=== PATIENT | female | born 1930 | race Caucasian/White ===

== ENCOUNTER 2017-07-27 19:46 | Observation (INO) ==
[2017-07-27] MEDS ORDERED: LABETALOL 20 MG/4 ML SYRINGE IV STA (20:53)
--- NOTE | 2017-07-27 20:56 | Emergency Department Note ---
Arrival - Arrival Chief Complaint: Abdominal / Flank Pain Stated Complaint: Heart ED Nursing Triage Note: C/O Upper abd pain. Onset 1900. Pt states she was concerned that it could be her heart, but took gas x and coreg just to be sure. Pt reports that she does feel some better. Pt reports that her blood pressure was also high at home as well. Mode of Arrival: Wheelchair Time Seen by Provider: 07/27/17 20:15 - History of Present Illness HPI Narrative: This is a 87-year-old white female with a history of atrial fibrillation on Coreg and Eliquis presents with severe sudden onset of epigastric abdominal pain was started approximately 7 PM and which lasted for 30 minutes not associated with diaphoresis shortness of breath nor nausea and vomiting. The patient was concerned that this discomfort was due to a heart problem because her blood pressure was 212/90 she came to the emergency department for further evaluation to be sure she was not having a heart attack. She has no history of coronary artery disease. She has a history of high blood pressure and hyperlipidemia Date of Last Menstrual Period: Hysterectomy Allergies/Adverse Reactions: Allergies Allergy/AdvReac Type Severity Reaction Status Date / Time morphine Allergy Intermediate Difficulty Verified 07/27/17 19:55 Breathing Home Medications: Home Medications Medication Instructions Recorded Confirmed Type Apixaban [Eliquis] 2.5 mg PO BID 07/27/17 07/27/17 History Atorvastatin [Lipitor] 10 mg PO DAILY 07/27/17 07/27/17 History Carvedilol [Coreg] 3.125 mg PO BID 07/27/17 07/27/17 History dilTIAZem HCl [Diltiazem HCl] 60 mg PO DAILY 07/27/17 07/27/17 History Review of System - Review of System Constitutional: Absent: fever, night sweats Eyes: Absent: redness, vision change Head/Ears/Nose/Throat: Absent: epistaxis, nasal drainage Respiratory: Absent: respiratory distress, wheezing Cardiovascular: Absent: dyspnea on exertion, orthopnea Gastrointestinal: Absent: nausea, vomiting Genitourinary female: Absent: dysuria, frequency Musculoskeletal: Absent: joint swelling, lower back pain Skin: Absent: change in color, change in hair/nails Neurological: Absent: numbness, paresthesias Psychiatric: Absent: anxiety, depression Endocrine: Absent: polydipsia, polyuria Hematological/Lymphatic: Absent: easy bruising, lymphadenopathy Allergic/Immunologic: Absent: urticaria, itchy eyes Medical,Surgical,& Family Hx - Medical History Cardio: History of: Hypertension - Social History Smoking Status: Never smoker Frequency of Alcohol Use: None Type of Drug Use: None Exam Vital Signs: Vital Signs Temperature 98.0 F 07/27/17 19:56 Pulse Rate 77 07/27/17 19:56 Respiratory Rate 16 07/27/17 19:56 Blood Pressure 219/81 07/27/17 19:56 O2 Sat by Pulse Oximetry 98 07/27/17 19:56 - General General appearance: alert - Eye Eye exam: Present: PERRL, EOMI - ENT ENT exam: Present: normal exam - Neck Neck exam: Present: normal inspection, full ROM - Chest Chest inspection: Present: normal inspection - Respiratory Respiratory exam: Present: normal lung sounds bilaterally - Cardiovascular Cardiovascular exam: Present: regular rate, normal rhythm. Absent: irregular rhythm - Abdominal Exam Abdominal exam: Present: soft, normal bowel sounds - Extremities Exam Extremities exam: Present: normal inspection, full ROM - Back Exam Back exam: Present: normal inspection, full ROM - Neurological Exam Neurological exam: Present: alert, oriented X3, CN II-XII intact - Psychiatric Psychiatric exam: Present: normal affect, normal mood - Skin Skin exam: Present: warm, dry Course Course Narrative: Patient's troponin is slightly elevated and because of her 30 minutes of epigastric abdominal pain it seems prudent that she should be admitted to the hospital for serial cardiac enzymes and possible stress test. The case was discussed with the hospitalist who agreed to admit the patient to the hospital. Results - Labs CBC & BMP: 07/27/17 21:05 07/27/17 21:05 Disposition Clinical Impression: Chest pain Disposition: Still a Patient
[2017-07-27] MEDS ORDERED: LABETALOL 20 MG/4 ML SYRINGE IV ONE (21:09)
[2017-07-27 21:18] LABS: Basophils # 0.1 10*3/uL (0.0-0.2); Basophils % 0.8 % (0.0-0.8); Eosinophils # 0.2 10*3/uL (0.0-0.87); Eosinophils % 2.3 % (0.00-10.9); Hemoglobin 13.2 GM/DL (12.0-16.0); Immature Granulocytes % 0.5 %; Immature Granulocytes Absolute 0.03 #; Lymphocytes # 1.2 10*3/uL (1.4-4.0); Lymphocytes % 18.5 % (21.3-54.2); Mean Corpuscular Hemoglobin 31 PG (27-34); Mean Platelet Volume 11.4 FL (9.6-12.0); Monocytes # 0.4 10*3/uL (0.11-0.8); Monocytes % 5.6 % (1.7-12.7); Neutrophils # 4.8 10*3/uL (1.4-7.4); Neutrophils % 72.3 % (38.7-73.9); Platelet Count 153 T/CUMM (130-400); Red Cell Distribution Width 13.5 % (9.3-17.3); White Blood Count 6.6 T/CUMM (4-12)
[2017-07-27 22:12] LABS: Albumin 3.6 G/DL (3.4-5.0); Bilirubin,Total 0.5 MG/DL (0.2-1.0); Calcium 8.8 MG/DL (8.5-10.1); Potassium 3.7 MMOL/L (3.5-5.1); Total Protein 7.1 G/DL (6.4-8.3); Troponin I Only 0.047 NG/ML (0.00-0.045)
[2017-07-27] MEDS ORDERED: ONDANSETRON 4 MG/2 ML VIAL IV PRN (23:18)
--- NOTE | 2017-07-27 23:46 | Hospitalist History & Physical ---
Assessment and Plan - Time spent with patient Time spent with patient: Greater than 30 minutes (1) Chest pain Status: Acute Assessment and plan: Admit to hospitalist services. Consult cardiology. Telemetry; Hx of A-fib. Initial troponin in ED was 0.047; Follow serial troponins and EKGs. Cardiac Diet. Continue home medications; atorvastatin, Coreg, Cardizem, and Eliquis. Hydralazine 10 mg IV Q 2 hours PRN. O2 per unit protocol. BNP, BMP, TSH/Free T4, Lipid panel, and magnesium in a.m. Patient has reported dizziness and daily headaches for several months. Obtain carotid US. Current Visit: Yes (2) Hypertension Status: Chronic Assessment and plan: As above. Current Visit: Yes (3) Atrial fibrillation Status: Chronic Assessment and plan: As above. Current Visit: No (4) Hyperlipidemia Status: Chronic Assessment and plan: As above. Current Visit: No (5) DVT prophylaxis Status: Acute Assessment and plan: Continue home dose of Eliquis. Current Visit: Yes History of Present Illness Chief complaint: Chest pain History of present illness: Ms. Torrez is a 87 year old female with a past medical history of atrial fibrillation, hypertension, and hyperlipidemia who presented to the ED tonight with complaints of chest pain that started around 19:00 today. She reports that pain started in the epigastric region after eating at [employer] and radiated to the right and left upper quadrants. She initially thought it was gas pains from food intake and went home and took some gas medicine. She also checked her blood pressure at that time and found it severely elevated at 212/90 with a heart rate of 76, so she took her nightly dose of Coreg at that time. Pain was present at rest, was described as feeling of pressure and was rated as 4/10. Pain lasted about 30-40 minutes and had resolved by the time she reached the ED. She denies any associated shortness of breath, nausea, vomiting, diaphoresis , or palpitations. She does report dizziness but says she has had dizzy episodes since August of last year. Additionally, she reports that she has had daily headaches and felt fatigued, irritable, and unlike herself for the last 3-4 months. Labs in the ED were significant for Troponin 0.047 and Creatinine 1.10. EKG showed sinus rhythm with occasional PVCs and no ST elevation. Currently, she is lying in bed, in no acute distress and pain free. Hospitalist services were consulted, and the patient will be admitted to for further evaluation and treatment. Home medications were reviewed and reconciled. This patient is a full code. Home Medications Medication Instructions Recorded Confirmed Type Apixaban [Eliquis] 2.5 mg PO BID 07/27/17 07/28/17 History Atorvastatin [Lipitor] 10 mg PO DAILY 07/27/17 07/28/17 History Carvedilol [Coreg] 3.125 mg PO DAILY 07/27/17 07/28/17 History dilTIAZem HCl [Diltiazem HCl] 30 mg PO DAILY 07/27/17 07/28/17 History Allergies Allergy/AdvReac Type Severity Reaction Status Date / Time morphine Allergy Intermediate Difficulty Verified 07/27/17 19:55 Breathing Medical,Surgical,& Family Hx - Medical History Cardio: History of: Cardiac Dysrhythmia (Atrial fibrillation ), Hypertension HEENT: History of: Eye Problem (Macular hole s/p surgical repair) - Surgical History HEENT Surgeries: Surgical HX of: Eye Surgery (cataract; macular hole repair ) Abdominal Surgeries: Surgical HX of: Appendectomy Reproductive Surgeries: Surgical HX of;: Section, Hysterectomy - Family History Family History: Reports;: Family Heart Disease, Family Hypertension - Social History Smoking Status: Never smoker Have you smoked in the last 12 months: No Frequency of Alcohol Use: None Type of Drug Use: None Marital Status: Lives With:: Spouse Functional capacity: independent ambulation 12 point system: reviewed and no additional remarkable complaints except as stated - Constitutional Constitutional: Present: fatigue, headache(s). Absent: chills, fever(s), lethargy, malaise, weakness - EENT Eyes: Absent: blurry vision, diplopia, loss of vision Ears: Absent: decreased hearing, ear discharge, ear pain Nose, mouth and throat: Present: headache(s). Absent: epistaxis, nasal congestion, sore throat - Cardiovascular Cardiovascular: Present: chest pain at rest. Absent: diaphoresis, dyspnea, edema, radiating jaw, neck or arm pain, orthopnea, palpitations - Respiratory Respiratory: Absent: cough, dyspnea, wheezing - Gastrointestinal Gastrointestinal: Absent: abdominal pain, constipation, diarrhea, nausea, vomiting - Genitourinary Genitourinary: Absent: dysuria, flank pain, urinary frequency - Musculoskeletal Musculoskeletal: Absent: arthralgias, joint swelling, muscle weakness, myalgias - Neurological Neurological: Present: disequilibrium, dizziness, headache(s). Absent: confusion, numbness, paresthesias, syncope - Psychiatric Psychiatric: Present: anxiety. Absent: depression - Endocrine Endocrine: Absent: cold intolerance, polydipsia, polyphagia, polyuria - Hematologic/Lymphatic Hematologic/Lymphatic: Absent: easy bleeding, easy bruising Exam - Constitutional Vitals: Period Temp Pulse Resp BP Sys/[place] Pulse Ox Last 24 Hr 98.0 F-98.0 F 77-77 16-16 219-219/81-81 98 Exam: Constitutional System: Afebrile. Awake, alert and oriented x 3. No distress. No tremulousness. Head: Normocephalic, atraumatic. Ears, Nose and Throat System: No pain or tenderness. No epistaxis or discharge Eyes System: Pupils equal, round, and reactive. Extraocular muscles intact. Neck: Supple, without adenopathy, No jugular venous distention. No thyromegaly, neck mass, or prior surgery apparent. Respiratory System: Chest clear to auscultation. Cardiovascular System: Heart with regular rate and rhythm. No murmur. GI System: Abdomen soft, nontender. Normo active bowel sounds present. Musculoskeletal System: Limbs with no pedal edema. Full distal pulses. Normal capillary refill. Neurological System: No discernable sensory deficit. No aphasia Psychiatric System: Conversation is rational Results - Labs CBC & BMP: 07/27/17 21:05 07/27/17 21:05 Lab Results: I have reviewed the past 24 hour labs Labs: WBC 6.6 RBC 4.3 Hgb 13.2 HCT 40.0 Platelet 153 Sodium 143 Potassium 3.7 Chloride 106 BUN 20 Creatinine 1.1 AST 49 ALT 27 Alkaline phosphatase 124 Troponin 0 0.047
[2017-07-28] MEDS ORDERED: hydrALAZINE 20 MG/1 ML VIAL IV PRN (01:23)
[2017-07-28] MEDS ORDERED: ALUMINUM/MAGNES/SIMETH MAX STR 30 ML UDCUP PO PRN (01:25)
[2017-07-28] MEDS: ATORVASTATIN 10 MG TABLET PO SCH ×2 (01:42→13:40)
[2017-07-28] MEDS: DILTIAZEM 60 MG TABLET PO SCH ×2 (01:42→13:43)
[2017-07-28] MEDS: APIXABAN 2.5 MG TABLET PO SCH ×3 (01:42→20:05)
--- NOTE | 2017-07-28 02:46 | Order Completion Report ---
See report scanned to EMR
[2017-07-28 06:41] LABS: Calcium 8.5 MG/DL (8.5-10.1); Magnesium 2.1 MG/DL (1.8-2.4); Osmolality,Calculated 288.8 MOS/KG (273-304); Potassium 3.7 MMOL/L (3.5-5.1); Risk Ratio 3.3; Thyroid Stimulating Hormone 2.38 uIU/ml (0.358-3.74); VLDL CHOLESTEROL 24.8 MG/DL
--- NOTE | 2017-07-28 07:01 | Order Completion Report ---
See report scanned to EMR
[2017-07-28] MEDS ORDERED: CARVEDILOL 3.125 MG TABLET PO SCH ×2 (08:00→21:00)
--- NOTE | 2017-07-28 08:48 | Ultrasound Report ---
Exam:US carotid duplex BI Date:07/28/2017 4:22 AM Indication: Dizziness, headaches Color Doppler, wave form analysis, and grayscale analysis of the cervical carotid arteries was performed. There is a moderate amount of eccentric partially calcified plaque in the left carotid bulb. Waveform analysis shows proper directional flow of the cervical carotid arteries. There is antegrade flow in either vertebral artery. There is no abnormal increased peak systolic velocity in the common or internal carotid arteries where seen. Impression: There is 0-49% diameter reduction narrowing of either internal carotid artery using indirect NASCET criteria Right Side Flow velocities centimeters per second Common carotid artery: 96 Proximal ICA: 74 Distal ICA: 90 External carotid artery: 128 Vertebral artery: 64 ICA/CCA ratio: 0.9 Measurements in millimeters Distal ICA: 5.2 Left SIde Flow velocities centimeters per second Common carotid artery 101 Proximal ICA: 51 Distal ICA: 120 External carotid artery: 110 Vertebral artery: 68 ICA/CCA ratio: 1.2 Measurements in millimeters Distal ICA: 5.1 Today studies were performed utilizing indirect NASCET criteria PROCEDURE INTERPRETED AT [facility] [place] DEPARTMENT OF RADIOLOGY Final Report Signed by: Dr. Kitty Christopher
[2017-07-28] MEDS ORDERED: APIXABAN 2.5 MG TABLET PO SCH (09:00)
[2017-07-28] MEDS ORDERED: ATORVASTATIN 10 MG TABLET PO SCH (09:00)
[2017-07-28] MEDS ORDERED: DILTIAZEM 60 MG TABLET PO SCH (09:00)
--- NOTE | 2017-07-28 09:55 | Cardiology Consult Note ---
Assessment and Plan - Time spent with patient Time spent with patient: Greater than 30 minutes (1) Fatigue Status: Acute Assessment and plan: SEE PLAN OF CARE LISTED BELOW Current Visit: Yes (2) Chest pain Status: Acute Assessment and plan: SEE PLAN OF CARE LISTED BELOW Current Visit: Yes (3) Hypertension Status: Chronic Assessment and plan: SEE PLAN OF CARE LISTED BELOW Current Visit: Yes (4) Atrial fibrillation Status: Chronic Assessment and plan: SEE PLAN OF CARE LISTED BELOW Current Visit: No (5) Hyperlipidemia Status: Chronic Assessment and plan: SEE PLAN OF CARE LISTED BELOW Current Visit: No History of Present Illness - Data of Consult Patient: known to practice within the last 3 years Consult date: 07/28/17 Requesting Physician: Surya Cabral - Consult Narrative Reason for consult: chest pain, fatigue History of present illness: 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 Torrez, 87WF, with risk factors significant for: Age, hypertension, dyslipidemia. History of paroxysmal atrial fibrillation (takes Eliquis for stroke prevention), mitral valve disorder. Patient presented to the emergency department last evening after experiencing chest pain intermittently after eating at [employer]. The discomfort started late in the evening and initially started in the epigastric region but then radiated to the right and left chest area. It took her breath away. Described as tightness. When she checked her blood pressure at home it was noted to be 212/ 90, heart rate 76. Patient took an additional Coreg and Tums. Because she was having hypertension and chest discomfort she felt as if she should be evaluated in the ER. The discomfort lasted approximately 45 minutes and as she arrived in the emergency department, discomfort subsided. Around 0100 this morning, patient began to feel full sensation in the epigastric area and some nausea. This lasted approximately 2 hours. She was given something for nausea and the discomfort went away. Rates the pain as 7 on a scale of 1-10, currently chest pain-free. Patient is normally active performing her activities of daily living at home without chest pain, heaviness or tightness. She has been fatigued over the past several months. She reports she does sleep well and gets at least 8 hours of sleep each night. She has been extremely dizzy and does not take in a lot of fluids throughout the day. Carotid ultrasound negative. Troponin 0.047, 0.144 and 0.151. EKG does not reveal an ischemic event. I will keep patient n.p.o. and discuss with Dr. Bangura. Await additional recommendations. IMPRESSION/PLAN: 1. CHEST PAIN - continue follow cardiac biomarkers. Echocardiogram. Continue with beta-oksana, statin. Add PPI 2. HYPERTENSION - will adjust medications accordingly during hospital stay 3. DYSLIPIDEMIA - continue statin. LDL 70 4. PAROXYSMAL ATRIAL FIBRILLATION - currently normal sinus rhythm without paroxysms of atrial fibrillations during this hospital stay. Continue Eliquis for stroke prevention 5. MITRAL VALVE DISORDER - echocardiogram 6. FATIGUE - will order UA CC: Cyndi Hughes MD - Home Medications and Allergies Home Medications: Home Medications Medication Instructions Recorded Confirmed Type Apixaban [Eliquis] 2.5 mg PO BID 07/27/17 07/28/17 History Atorvastatin [Lipitor] 10 mg PO DAILY 07/27/17 07/28/17 History Carvedilol [Coreg] 3.125 mg PO DAILY 07/27/17 07/28/17 History dilTIAZem HCl [Diltiazem HCl] 30 mg PO DAILY 07/27/17 07/28/17 History Allergies/Adverse Reactions: Allergies Allergy/AdvReac Type Severity Reaction Status Date / Time morphine Allergy Intermediate Difficulty Verified 07/27/17 19:55 Breathing Review of systems: REVIEW OF SYSTEMS: - Constitutional Constitutional: Present: Fatigue. Absent: syncope, anorexia, night sweats - EENT Eyes: Absent: blurry vision, loss of vision, diplopia Ears: Absent: decreased hearing, ear pain, ear discharge - Cardiovascular Cardiovascular: Present: chest pain at rest. Denies dyspnea on exertion. Denies edema, palpitations. Absent: chest pain with deep breath, claudication, - Respiratory Respiratory: Denies OLMEDO, cough. Absent: wheezing, hemoptysis, change in phlegm color - Gastrointestinal Gastrointestinal: Present: constipation, anal spasms frequent. Absent: abdominal pain, hematemesis, hematochezia, melena, change in bowel habits, nausea - Genitourinary Genitourinary: Absent: difficulty urinating, dysuria, urinary hesitancy, flank pain - Musculoskeletal Musculoskeletal: Present: back pain Absent: joint swelling, muscle cramps, muscle weakness - Neurological Neurological: Present: normal gait without frequent falls. Dizziness. Absent: hemiparesis - Psychiatric Psychiatric: Absent: anxiety, depression, difficulty concentrating - Endocrine Endocrine: Present: fatigue. Absent: cold intolerance, heat intolerance, polyuria, polyphagia, polydipsia - Hematologic/Lymphatic Hematologic/Lymphatic: Present: easy bruising. Absent: easy bleeding -Integumentary Integumentary: Absent: lesions, rashes, skin breakdown Medical,Surgical,& Family Hx - Medical History Cardio: History of: Cardiac Dysrhythmia (Atrial fibrillation ), Hypertension No history of: [place] HEENT: History of: Eye Problem (Macular hole s/p surgical repair) - Surgical History HEENT Surgeries: Surgical HX of: Eye Surgery (cataract; macular hole repair ) Abdominal Surgeries: Surgical HX of: Appendectomy Reproductive Surgeries: Surgical HX of;: Section, Hysterectomy - Family History Family History: Reports;: Family Heart Disease, Family Hypertension - Social History Smoking Status: Never smoker Have you smoked in the last 12 months: No Frequency of Alcohol Use: None Type of Drug Use: None Marital Status: Lives With:: Alone Functional capacity: independent ambulation Physical Examination Vital Signs Temp Pulse Resp BP Pulse Ox 98.0 F 77 16 219/81 98 07/27/17 19:56 07/27/17 19:56 07/27/17 19:56 07/27/17 19:56 07/27/17 19:56 Exam: General: [Appears well with no apparent distress.] [Pleasant and cooperative. ] [Appears comfortable.] HEENT: [PERRL, normocephalic, atraumatic. Mucous membranes moist. No jaundice noted. Conjunctiva moist and clear, sclerae anicteric] Neck: No JVD/HJR, no thyromegaly or lymphadenopathy noted. Bilateral carotid bruits Cardiac: [Regular rate and rhythm.] [No obvious murmur rub or gallop.] Lungs: [Clear to auscultation without accessory muscle use to assist the respiratory pattern.] Not requiring oxygen Abdomen: Soft, bowel sounds normoactive. Nontender and nondistended. No abdominal bruit or thrill noted. No masses noted. Musculoskeletal: No fluid collection. Decreased range of motion is noted. Extremities: No clubbing, cyanosis noted. [ No edema noted.] Upper extremity pulses 2+. Lower extremity pulses 2+. Capillary refill less than 3 seconds. Skin: No unusual lesions or rashes. No skin breakdown appreciated. Neuro: Awake, alert and oriented 3. Moves all extremities well without hemiparesis or paralysis. No essential tremor is appreciated. Result/EKG - Labs CBC & BMP: 07/27/17 21:05 07/28/17 05:20 Lab Results: I have reviewed the past 24 hour labs Labs: Laboratory Results - last 24 hr 07/27/17 07/27/17 07/28/17 21:05 21:05 05:20 WBC 6.6 RBC 4.30 Hgb 13.2 Hct 40.0 MCV 93.0 MCH 31 MCHC 33.0 RDW 13.5 Plt Count 153 MPV 11.4 Neut % (Auto) 72.3 Lymph % (Auto) 18.5 L Leslie % (Auto) 5.6 Eos % (Auto) 2.3 Baso % (Auto) 0.8 Neut # (Auto) 4.8 Lymph # (Auto) 1.2 L Leslie # (Auto) 0.4 Eos # (Auto) 0.2 Baso # (Auto) 0.1 Immature Gran % 0.5 Nucleated RBC % 0.0 Immature Gran # 0.03 Nucleated RBCs # 0.00 Immature Plt Fraction 0.0 Sodium 143 Potassium 3.7 Chloride 106 Carbon Dioxide 28 Anion Gap 12.7 BUN 20 H Creatinine 1.10 H GFR Calculation 43 BUN/Creatinine Ratio 18.00 Glucose 104 Calculated Osmolality 287.0 Calcium 8.8 Magnesium Total Bilirubin 0.50 AST 49 H ALT 27 Alkaline Phosphatase 124 H Troponin I 0.047 H 0.144 H D B-Natriuretic Peptide Total Protein 7.1 Albumin 3.6 Globulin 3.5 Albumin/Globulin Ratio 1.0 L Triglycerides Cholesterol LDL Cholesterol VLDL Cholesterol HDL Cholesterol Heart Disease Risk Ratio Free T4 TSH 3rd Generation 07/28/17 07/28/17 07/28/17 05:20 05:20 05:20 WBC RBC Hgb Hct MCV MCH MCHC RDW Plt Count MPV Neut % (Auto) Lymph % (Auto) Leslie % (Auto) Eos % (Auto) Baso % (Auto) Neut # (Auto) Lymph # (Auto) Leslie # (Auto) Eos # (Auto) Baso # (Auto) Immature Gran % Nucleated RBC % Immature Gran # Nucleated RBCs # Immature Plt Fraction Sodium 144 Potassium 3.7 Chloride 109 H Carbon Dioxide 28 Anion Gap 10.7 BUN 19 H Creatinine 0.90 GFR Calculation 55 BUN/Creatinine Ratio 21.00 H Glucose 113 H Calculated Osmolality 288.8 Calcium 8.5 Magnesium 2.1 Total Bilirubin AST ALT Alkaline Phosphatase Troponin I B-Natriuretic Peptide 215 H Total Protein Albumin Globulin Albumin/Globulin Ratio Triglycerides 124 Cholesterol 145 LDL Cholesterol 78.0 VLDL Cholesterol 24.8 HDL Cholesterol 44 Heart Disease Risk Ratio 3.30 Free T4 1.11 TSH 3rd Generation 2.380 07/28/17 05:20 WBC RBC Hgb Hct MCV MCH MCHC RDW Plt Count MPV Neut % (Auto) Lymph % (Auto) Leslie % (Auto) Eos % (Auto) Baso % (Auto) Neut # (Auto) Lymph # (Auto) Leslie # (Auto) Eos # (Auto) Baso # (Auto) Immature Gran % Nucleated RBC % Immature Gran # Nucleated RBCs # Immature Plt Fraction Sodium Potassium Chloride Carbon Dioxide Anion Gap BUN Creatinine GFR Calculation BUN/Creatinine Ratio Glucose Calculated Osmolality Calcium Magnesium Total Bilirubin AST ALT Alkaline Phosphatase Troponin I 0.151 H B-Natriuretic Peptide Total Protein Albumin Globulin Albumin/Globulin Ratio Triglycerides Cholesterol LDL Cholesterol VLDL Cholesterol HDL Cholesterol Heart Disease Risk Ratio Free T4 TSH 3rd Generation - Diagnostic Findings Procedure: Chest x-ray: report reviewed by me - EKG EKG results: interpreted by me EKG shows: sinus rhythm
[2017-07-28 10:55] LABS: Apearance,Urine CLEAR (Clear); Bilirubin,Urine Negative (Negative); Blood, Urine Negative (Negative); Glucose,Urine (UA) Negative (Negative); Ketones,Urine Negative (Negative); Mucus,Urine Occasional /LPF (Occasional); Nitrite,Urine Negative (Negative); Protein,Urine Negative; RBC,Urine 1 /HPF (0-4); Squamous Epithelial Cell,Urine Occasional /HPF (0-10); Urine Color Yellow (Yellow); Urine Specific Gravity 1.011 (1.001-1.035); WBC,Urine 1 /HPF (0-6)
[2017-07-28] MEDS ORDERED: REGADENOSON 0.4 MG/5 ML SYRINGE IV ONE (11:31)
[2017-07-28] MEDS: ACETAMINOPHEN 325 MG TABLET PO PRN (13:39)
[2017-07-28] MEDS: PANTOPRAZOLE 20 MG TABLET PO SCH (13:40)
--- NOTE | 2017-07-28 14:04 | Event Note ---
Patient underwent Lexiscan stress testing. Patient had no significant EKG changes or arrhythmia. After being giving Annette scan however, she became nauseated with vomiting and hypotension. This lasted approximately 2 minutes. No chest pain, heaviness or tightness associated with this episode. Blood pressure recovered and was 128/68 when she transitioned to nuclear medicine for final scan completion. Dr. Bangura to read, interpreted and advise.
--- NOTE | 2017-07-28 16:22 | Hospitalist Progress Note ---
Assessment and Plan (1) Irritability Status: Acute Current Visit: Yes (2) Chest pain Status: Acute Assessment and plan: 1)HTN with chest pain- not ACS per DR Bangura. Meds to be changed by Dr Bangura. He thinks she can go home tomorrow. echo pending. 2)irritability- readdress tomorrow. She might benefit from low dose of SSRI. 3)paroxysmal a fib- on Eliquis, monitor- now in NSR. Current Visit: Yes (3) Hypertension Status: Chronic Current Visit: Yes (4) Atrial fibrillation Status: Chronic Current Visit: No (5) Hyperlipidemia Status: Chronic Current Visit: No (6) DVT prophylaxis Status: Acute Current Visit: Yes Hospitalist: Subjective Interval history: Mrs Morris is feeling ok today. Dr Bangura has just been in to explain the results of her stress test. She denies chest pain or shortness of breath. Her family, and daughter. are also present and they are concerned about her stress level. She reports irritability, lack of patience, dislike of crowds and inability to sit down and eat. We discussed meds that might help, specifically a later generation SSRI, but she is reluctant. They will think about it tonight and we can discuss again tomorrow. Exam - Constitutional Vitals: Period Temp Pulse Resp BP Sys/[place] Pulse Ox Last 24 Hr 98.0 F-98.8 F 60-77 16-20 141-219/64-107 95-98 General appearance: normal weight, no acute distress - Eye Eye exam: Present: EOMI. Absent: scleral icterus - Respiratory Respiratory exam: Present: clear to auscultation bilaterally - Cardiovascular Cardiovascular exam: Present: regular rate and rhythm - GI/Abdominal GI/Abdominal exam: Present: normal bowel sounds, soft. Absent: tenderness - Extremities Exam Extremities exam: Absent: edema Results - Labs CBC & BMP: 07/27/17 21:05 07/28/17 05:20
--- NOTE | 2017-07-28 19:10 | Order Completion Report ---
See report scanned to EMR
[2017-07-28] MEDS: CARVEDILOL 3.125 MG TABLET PO SCH (20:05)
--- NOTE | 2017-07-29 04:40 | Order Completion Report ---
See report scanned to EMR
--- NOTE | 2017-07-29 08:28 | Discharge Summary ---
<Katelin Garcia - Last Filed: 07/29/17 10:43> Hospital Course - Hospital Course Hospital Course: Ms Torrez w/PMHx of HTN, Afib presented to the ED for further evaluation of sudden severe epigastric pain/chest pain. IN ED LABS: BUN 20 and creatinine 1.10 , AST 49, Alkaline Phosphatase 124, Troponin 0.047, urinalysis negative for infection. Hospital Medicine consulted. admitted on 07/27/17. Cardiology consulted, carotid US ordered, repeat labs with serial troponin. Serial troponin remained stable. Carotid doppler: normal. ECHO with normal EF. Stress test on 07/28/17: suggest small area of mild anterior ischemia, no significant EKG changes, chest pain or tightness. today 07/29/17 Patient is stable, symptoms improved, and labs stable. She will be discharged home. She will need to continue Eliquis, Lipitor, Coreg, Cardizem , Aspirin, and zoloft. She will need to follow up with Cardiology (Dr Bangura) on 08/29/17 @ 9:40 a.m. She will need to follow up with Primary Care Physician in 1 week. Further discharge planning recommendations to follow per Dr Hughes. I have seen and examined Mrs Torrez also and have formed the discharge plan, reconciled the medicines and coordinated care with cardiology as well as documentation which required 40 minutes. She has asked to try Zoloft in a small dose to help with her stress and tension. I will start her on Zoloft 12.5mg a day with follow up with [facility] in a about a week. She will also see Dr Bangura in follow up. Specialty Discharge - Follow Up or Referrals Follow up with: Your, PCP [Other] - 08/05/17 10:30 am ([facility] in 1 week for stress and HTN ) Kenny Bangura MD [Physician] - 08/29/17 9:40 am Discharge Plan - Discharge Data Disposition: Disch To Home/Self Care - Discharge Medications New Carvedilol [Coreg] 12.5 mg PO BID W/MEALS #60 tablet Diltiazem Tab [Cardizem Tab] 60 mg PO DAILY #30 tablet Aspirin EC Tab 81 mg PO DAILY tablet Sertraline [Zoloft] 12.5 mg PO DAILY #30 tablet Continue Atorvastatin [Lipitor] 10 mg PO DAILY Apixaban [Eliquis] 2.5 mg PO BID Discontinued dilTIAZem HCl [Diltiazem HCl] 30 mg PO DAILY Carvedilol [Coreg] 3.125 mg PO DAILY - Follow Up or Referral Follow Up: Your, PCP [Other] - 08/05/17 10:30 am ([facility] in 1 week for stress and HTN ) Kenny Bangura MD [Physician] - 08/29/17 9:40 am - Forms/Instructions Instructions: Chest Pain (DC), Fatigue (DC) Exam - Constitutional Vitals: Period Temp Pulse Resp BP Sys/[place] Pulse Ox Last 24 Hr 97.0 F-98.7 F 56-77 16-20 120-168/53-75 95-98 Discharge Results Labs on day of discharge: Labs from last 24 hours 07/28/17 10:40 Urine Color Yellow Urine Appearance Clear Urine pH 6.0 Ur Specific [place] 1.011 Urine Protein Negative Urine Glucose (UA) Negative Urine Ketones Negative Urine Blood Negative Urine Nitrate Negative Urine Bilirubin Negative Urine Urobilinogen 2.0 H Urine Leukocytes Negative Urine RBC 1 Urine WBC 1 Ur Squamous Epith Cells Occasional Urine Mucus Occasional Ur Culture Indicated? Not indicated DS: Provider Date of admission: 07/27/17 23:14 Primary care physician: . No PCP Attending physician on admission: Surya Cabral MD Consults: 07/27/17 23:18 Consult to Physician [CONS] Routine Comment: Chest pain; Hx of A-fib Consulting Provider: Cardiology - [facility] Consult to Specialist Group: Cardiology Person Notified: Den Date Notified: 07/28/17 Time Notified: 08:20 Discharging clinician: Katelin Garcia NP <Cyndi Hughes - Last Filed: 07/29/17 13:47> Hospital Course - Time spent with patient Time with patient DS: Greater than 30 minutes Diagnosis - Discharge Diagnosis (1) Irritability Status: Chronic (2) Chest pain Status: Resolved (3) Hypertension Status: Chronic (4) Atrial fibrillation Status: Chronic (5) Hyperlipidemia Status: Chronic (6) DVT prophylaxis Status: Resolved Discharge Plan - Discharge Data Condition at Discharge: Stable Discharge Diet: heart healthy Activity: resume usual activities as tolerated Exam - Constitutional General appearance: normal weight, no acute distress - Eye Eye exam: Present: EOMI. Absent: scleral icterus - Respiratory Respiratory exam: Present: clear to auscultation bilaterally - Cardiovascular Cardiovascular exam: Present: regular rate and rhythm - GI/Abdominal GI/Abdominal exam: Present: normal bowel sounds, soft. Absent: tenderness - Extremities Exam Extremities exam: Absent: edema
[2017-07-29] MEDS ORDERED: ASPIRIN EC 81 MG TABLET PO SCH (09:00)
[2017-07-29] MEDS: DILTIAZEM 60 MG TABLET PO SCH (09:05)
[2017-07-29] MEDS: APIXABAN 2.5 MG TABLET PO SCH (09:06)
[2017-07-29] MEDS: CARVEDILOL 3.125 MG TABLET PO SCH (09:07)
[2017-07-29] MEDS: PANTOPRAZOLE 20 MG TABLET PO SCH (09:07)
[2017-07-29] MEDS: ATORVASTATIN 10 MG TABLET PO SCH (09:07)
[2017-07-29] MEDS: ACETAMINOPHEN 325 MG TABLET PO PRN (10:09)
[2017-07-29 12:14] VITALS: BP 116/53
--- NOTE | 2017-07-29 13:41 | Cardiology Progress Note ---
Assessment and Plan - Time spent with patient Time spent with patient: Greater than 30 minutes (1) Fatigue Status: Acute Assessment and plan: SEE PLAN OF CARE LISTED BELOW Current Visit: Yes (2) Chest pain Status: Resolved Assessment and plan: SEE PLAN OF CARE LISTED BELOW Current Visit: Yes (3) Hypertension Status: Chronic Assessment and plan: SEE PLAN OF CARE LISTED BELOW Current Visit: Yes (4) Atrial fibrillation Status: Chronic Assessment and plan: SEE PLAN OF CARE LISTED BELOW Current Visit: No (5) Hyperlipidemia Status: Chronic Assessment and plan: SEE PLAN OF CARE LISTED BELOW Current Visit: No Cardiology - PN: Subj 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 TAYLOR Ms. Torrez, [id number], with risk factors significant for: Age, hypertension, dyslipidemia. History of paroxysmal atrial fibrillation (takes Eliquis for stroke prevention), mitral valve disorder. SUMMARY: Patient admitted July 27, 2017 for chest pain occurring after eating. Troponin ranged from 0.047-0.151. She underwent Lexiscan stress testing which revealed minimally decreased activity post Lexiscan injection and a small area of apical/anterior region compared to rest findings. 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 Low to moderate risk scan. Medical management ensued including increasing beta-oksana. She ambulated without difficulty and was anxious for release home. Patient presented with extremely high blood pressure and for this reason, blood pressure medications were adjusted for better control. She does have a history of dizziness and is actually scheduled to see ear, nose and throat doctor in approximately 1 month to evaluate for possible contributions. Her dizziness is not necessarily related to position changes. She actually saw an memorandum statement clerk recently and glasses were adjusted however still has some dizziness. Discussion ensued regarding possible event monitor if she continues to have dizziness and she is agreeable. She does have a tendency to only drink water during the night. She was encouraged to increase her water intake each day. July 29, 2017: Patient is continued to be followed for stable chronic conditions such as hypertension, dyslipidemia, PAF. She is also being followed for acute conditions such as chest pain and labile blood pressures. She is doing better today. Denies chest pain, heaviness or tightness. Denies shortness of breath, palpitations. Continues to have some dizziness. Dr. Hughes is seeing patient today and is discharging patient. Ms. Torrez will be given a follow-up appointment with Dr. Taylor in approximately 4 weeks. She will continue to monitor blood pressure at home and call Dr. Taylor's office for additional adjustments if needed. July 29, 2017 review of systems: Cardiovascular: Denies chest pain, heaviness, tightness. Denies palpitations. Pulmonology: Denies shortness of breath, orthopnea or PND Gastrointestinal: Denies abdominal pain, nausea or vomiting. IMPRESSION/PLAN: 1. CHEST PAIN - low to moderate risk scan results from [facility]. Medical management will ensue. Continue aspirin and statin, beta-oksana. 2. HYPERTENSION - improved with increased dose of Coreg. Will follow blood pressures outpatient. 3. DYSLIPIDEMIA - continue statin. LDL 70 4. PAROXYSMAL ATRIAL FIBRILLATION - currently normal sinus rhythm without paroxysms of atrial fibrillations during this hospital stay. Continue Eliquis for stroke prevention 5. MITRAL VALVE DISORDER -echo: EF 60%, grade 3 diastolic dysfunction, mildly sclerotic aortic valve without stenosis and trace insufficiency. Mild mitral regurgitation. Mild concentric LVH Exam (Progress Note) - Constitutional Vitals: Period Temp Pulse Resp BP Sys/[place] Pulse Ox Last 24 Hr 97.0 F-97.9 F 54-77 16-18 116-168/53-75 95-99 Exam: General: [Appears well with no apparent distress.] [Pleasant and cooperative. ] [Appears comfortable.] HEENT: [PERRL, normocephalic, atraumatic. Mucous membranes moist. No jaundice noted. Conjunctiva moist and clear, sclerae anicteric] Neck: No JVD/HJR, no thyromegaly or lymphadenopathy noted. No carotid bruit appreciated Cardiac: [Regular rate and rhythm.] [No murmur rub or gallop.] Lungs: [Clear to auscultation without accessory muscle use to assist the respiratory pattern.] Not requiring oxygen Abdomen: Soft, bowel sounds normoactive. Nontender and nondistended. No abdominal bruit or thrill noted. No masses noted. Musculoskeletal: No fluid collection. Decreased range of motion is noted. Extremities: No clubbing, cyanosis noted. [ No edema noted.] Upper extremity pulses 2+. Lower extremity pulses 2+. Capillary refill less than 3 seconds. Skin: No unusual lesions or rashes. No skin breakdown appreciated. Neuro: Awake, alert and oriented 3. Moves all extremities well without hemiparesis or paralysis. No essential tremor is appreciated. Result/EKG - Labs CBC & BMP: 07/27/17 21:05 07/28/17 05:20 Lab Results: I have reviewed the past 24 hour labs - Diagnostic Findings Procedure: Chest x-ray: report reviewed by me, Ultrasound: report reviewed by me - EKG EKG results: interpreted by me EKG shows: atrial fibrillation Specialty Discharge - Follow Up or Referrals Follow up with: Your, PCP [Other] - 08/05/17 10:30 am ([facility] in 1 week for stress and HTN ) Ector Taylor MD [Family Provider] - (1 month. EKG, BMP, Mg, CBC)
== END 2017-07-29 14:50 | disposition home or self-care (01) ==
LOC: N.ED 19:46 → N.TELEN 19:46 → SUATTDRO 23:14 → N.TELEN 07-28 00:43
PROVIDERS: ADMIT Internal Medicine; ATTEND Internal Medicine